=== PATIENT | male | born 1960 | race Caucasian/White ===

== ENCOUNTER 2017-07-20 08:38 | Emergency (ER) | payer MEDICAID ==
[~2017-07-20] VITALS: Ht 167.6 cm; Wt 84.2 kg
[2017-07-20 08:41] VITALS: Ht 167.6 cm; Wt 84.2 kg
[2017-07-20] MEDS ORDERED: KETOROLAC 30 MG INJ IM STA (09:14)
[2017-07-20] MEDS ORDERED: predniSONE 20 MG TAB PO ONE (09:30)
--- NOTE | 2017-07-20 10:25 | RADRPT ---
PROCEDURE: CT Lumbar Spine without contrast. CLINICAL INDICATION: Back pain. Pain radiating to left leg. TECHNIQUE: Noncontrast CT of the lumbar spine was performed with multiplanar reformatted images gen erated from the axial acquired data. The administered radiation dose was CTDI vol = 22.49 mGy, DLP = 742.72 mGy-cm. One or more of the following dose reduction techniques were used: Automated exposur e control, Adjustment of the mA and/or kV according to patient size, or Use of iterative reconstruct ion technique. DICOM images are available. COMPARISON: There are no similar studies submitted for comparison. FINDINGS: There is mild levoscoliosis. There is normal lumbar lordosis. There is a chronic-appearing mild right-sided superior L3 endplate deformity. Otherwise no acute fra cture is identified. There is no destructive osseous lesion. The discs are normal in height. The anterior posterior diameter of the spinal canal is 12 mm compatible with congenital spinal canal stenosis. T12-L1 : There is no disc herniation or spinal canal stenosis. There is mild bilateral facet arthro trino without bilateral foraminal stenosis. L1-L2 : There is a 2 mm broad-based disc bulge and mild bilateral facet arthropathy without spinal c anal or bilateral foraminal stenosis. L2-L3 : . There is trace retrolisthesis. There is a 2 mm broad-based disc bulge with moderate bilate ral facet arthropathy and ligamentum flavum infolding without spinal canal stenosis. There is mild t o moderate right with mild left foraminal stenosis. L3-L4 : There is trace anterolisthesis. There is a 5 mm circumferential disc bulge with severe bilat eral facet arthropathy ligamentum flavum infolding causing severe spinal canal stenosis. There are m oderate to severe right with mild to moderate left foraminal stenosis contacting the exiting right L 3 nerve root. L4-L5 : There is trace anterolisthesis with a 4 mm circumferential disc bulge with severe bilateral facet arthropathy ligamentum flavum infolding causing severe spinal canal stenosis. There is moderat e left and severe right foraminal stenosis impinging the exiting right L4 nerve root L5-S1 : . There is 3 mm circumferential disc bulge with moderate bilateral facet arthropathy without spinal canal stenosis. There is moderate to severe left with mild to moderate right foraminal steno sis impinging the exiting left L5 nerve root. The sacroiliac joints are intact. IMPRESSION: 1. Chronic -appearing mild right-sided superior L3 endplate deformity. Otherwise no acute fracture is identified. 2. Congenital spinal canal stenosis with multilevel spinal canal stenosis which is severe L3-L4 and L4-5. 3. Multilevel bilateral foraminal stenosis contacting the exiting right L3, impinging the exiting ri ght L4, and impinging the exiting left L5 nerve roots. Further findings as detailed above. RPTAT: PP .Ayush Srinivasan MD, MD Date Time Electronically viewed and signed by .Ayush Srinivasan MD, MD on 07/20/2017 10:25 .F/
--- NOTE | 2017-07-20 10:40 | ERD ---
ER Documentation Chief Complaint Chief Complaint lower back pain that radiates down left leg x last night HPI This a 56-year-old male who presents the emergency department today complaining of left-sided back pain for the past month and leg pain that is now worse this morning. Patient states he is having pain with ambulation. Denies any fevers or chills, loss of bowel or bladder control. 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 States he took 2 Tylenol this morning with no improvement in symptoms. ROS All systems reviewed and are negative except as per history of present illness. Medications Home Meds Active Scripts Prednisone* (Prednisone*) 20 Mg Tab, 40 MG PO DAILY for 4 Days, TAB Prov:DEENA NEWMAN PA-C 07/20/17 Naproxen* (Naprosyn*) 500 Mg Tablet, 500 MG PO BID Y for PAIN AND/OR INFLAMMATION, #30 TAB Prov:DEENA NEWMAN PA-C 07/20/17 Tramadol HCl (Tramadol HCl) 50 Mg Tablet, 50 MG PO Q4 Y for PAIN, #20 TAB Prov:DEENA NEWMAN PA-C 07/20/17 Allergies Allergies: Coded Allergies: No Known Allergy (Unverified , 07/20/17) PMhx/Soc Medical and Surgical Hx: pt denies Medical Hx, pt denies Surgical Hx Hx Alcohol Use: No Hx Substance Use: No Hx Tobacco Use: No Smoking Status: Never smoker Physical Exam Vitals Vital Signs Date Time Temp Pulse Resp B/P Pulse Ox O2 Delivery O2 Flow Rate FiO2 07/20/17 08:41 98.1 71 19 125/59 97 Physical Exam Const: sitting in wheelchair, NAD Head: Atraumatic Eyes: Normal Conjunctiva ENT: Normal External Ears, Nose and Mouth. Neck: Full range of motion..~ No meningismus. Resp: Clear to auscultation bilaterally Cardio: Regular rate and rhythm, no murmurs Abd: Soft, non tender, non distended. Normal bowel sounds Skin: No petechiae or rashes Back: Lumbar Spine midline tenderness and left-sided paraspinal tenderness. Positive straight leg raise. Pulses 2+. Distal neurovascularly intact. Ext: No cyanosis, or edema Neur: Awake and alert Psych: Normal Mood and Affect Results 24 hrs Current Medications Medications (Trade) Dose Ordered Sig/Gwen Route PRN Reason Start Time Stop Time Status Last Admin Dose Admin Ketorolac Tromethamine (Toradol) 30 mg ONCE STAT IM 07/20/17 09:14 07/20/17 09:16 DC 07/20/17 09:22 Prednisone (Prednisone) 60 mg ONCE ONCE PO 07/20/17 09:30 07/20/17 09:31 DC 07/20/17 09:22 Procedures/MDM This is a 56-year-old male presents the emergency department today complaining of back pain that radiates down into the back of his left leg. Patient states he was having pain with ambulation and given this symptoms and radicular pain I did obtain T lumbar spine Lumbar spine CT shows chronic appearing right-sided L3 endplate deformity. There is congenital spinal canal stenosis with multilevel spinal canal stenosis which is severe at L3 and L4 and L4 and L5. There is multilevel bilateral foraminal stenosis contacting the exiting right L3 and impinging on the exiting right L4 and impinging on the exiting left L5 nerve roots. This is likely the source of the patient's back and leg pain. Explained the results to the patient and . I have explained to them that need to see a primary care doctor for referral to bioinformatics support specialist and pathology specialist. Patient was given Toradol and prednisone here in the emergency department. I will give him a prescription for tramadol, Naprosyn and short course of prednisone for home. When I went back to see the patient he was out of the wheelchair and able to ambulate. Patient was given crutches to help ambulate. Patient is afebrile and otherwise well-appearing. He has no loss of bowel or bladder control have low suspicion for cauda equina or abscess. Patient does not have a primary care doctor and he is given a list of referrals as well as referral information for [facility] [place] and [facility]. At this time the patient is stable for discharge and outpatient management. Patient should follow up with their PCP in the next 1-2 days. They may return to the emergency department sooner for any persistent or worsening of symptoms. Patient understood and agreed with the plan. Departure Diagnosis: Primary Impression: Back pain Back pain location: low back pain Chronicity: chronic Back pain laterality : midline Sciatica presence: with sciatica Sciatica laterality: sciatica of left side Qualified Code: M54.42 - Chronic midline low back pain with left- sided sciatica Condition: Fair PROUSE,DEEAN M. PA-C Jul 20, 2017 10:40
[2017-07-20] MEDS ORDERED: TRAM50TA2 PO (10:44)
[2017-07-20] MEDS ORDERED: PRED20TA PO (10:44)
[2017-07-20] MEDS ORDERED: NAPR-260 PO (10:44)
== END 2017-07-20 11:10 | disposition home or self-care (01) ==
LOC: FTE 08:38
DX: M54.42 Lumbago with sciatica, left side (principal)
CPT/HCPCS: 72131; 96372; J1885; J7512; Z7502

== ENCOUNTER 2017-11-14 13:10 | Emergency (ER) | END 2017-11-14 14:38 | disposition home or self-care (01) ==